=== PATIENT | male | born 1995 | race Hispanic/Latino ===

== ENCOUNTER 2023-03-14 13:30 | Outpatient (RCR) | payer OTHER, SELFPAY ==
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
== END 2023-04-18 13:27 | disposition home or self-care (01) ==
LOC: OT 13:30
PROVIDERS: Family Provider Physician Assistant; PCP Physician Assistant; Referring Provider Physician Assistant; Visit Provider Physician Assistant
DX: M25.532 Pain in left wrist (principal)
CPT/HCPCS: 97110; 97165